=== PATIENT | male | born 1935 | race African-American/Black ===

== ENCOUNTER → 2017-01-08 | Outpatient (CLI) | payer MEDICARE, MEDICAID ==
[~2017-01-08] MED LIST: BARIUM SULFATE 450ML ORAL SUSP ONE; CALC-36 PO; CARV3.1242 PO; DIGO250T4 PO; DOCU-150 PO; FURO40TA5 PO; HYDR-4134 PO; HYDR-523 PO; IOHEXOL-300 100 ML BOTTLE ONE; ISOS30TA6 PO; LEVO25TA54 PO; RIVA20TA PO
== END | disposition home or self-care (01) ==
LOC: NM 06:47
PROVIDERS: ATTEND Urology
DX: C67.4 Malignant neoplasm of posterior wall of bladder (principal); I51.7 Cardiomegaly; I31.3 Pericardial effusion (noninflammatory); N13.30 Unspecified hydronephrosis; N13.4 Hydroureter; M47.899 Other spondylosis, site unspecified; R16.1 Splenomegaly, not elsewhere classified; R18.8 Other ascites
CPT/HCPCS: 74178; 78306; A9503; Q9967

== ENCOUNTER 2017-01-20 13:15 | Emergency (ER) | payer MEDICARE, MEDICAID ==
[~2017-01-20] VITALS: Ht 170.2 cm; Wt 69.0 kg
[~2017-01-20 13:15] MED LIST changes: -BARIUM SULFATE 450ML ORAL SUSP ONE; -IOHEXOL-300 100 ML BOTTLE ONE
[2017-01-20] MEDS ORDERED: ACETAMINOPHEN 325MG TABLET PO ONE (15:45)
[2017-01-20 22:03] VITALS: BP 143/79
== END 2017-01-20 22:39 | disposition home or self-care (01) ==
LOC: ER 13:29
DX: S00.83XA Contusion of other part of head, initial encounter (principal); W07.XXXA Fall from chair, initial encounter; Y93.89 Activity, other specified; Y99.9 Unspecified external cause status; Y92.89 Other specified places as the place of occurrence of the external cause; Z79.899 Other long term (current) drug therapy; I11.0 Hypertensive heart disease with heart failure; I50.9 Heart failure, unspecified; E03.9 Hypothyroidism, unspecified
CPT/HCPCS: 70450; 99284